=== PATIENT | male | born 1995 | race Caucasian/White ===

== ENCOUNTER 2017-09-21 16:23 | Emergency (ER) | payer SELFPAY ==
[2017-09-21] MEDS ORDERED: AMOXicillin 250 MG CAP ONE (17:42)
[2017-09-21] MEDS ORDERED: Benzonatate 100 MG CAP ONE (17:42)
== END 2017-09-21 18:00 | disposition home or self-care (01) ==
LOC: MADERS 16:23
DX: J20.9 Acute bronchitis, unspecified (principal); F17.210 Nicotine dependence, cigarettes, uncomplicated
CPT/HCPCS: 96372; J1040